=== PATIENT | female | born 1970 | race American Indian/Alaskan Native ===

== ENCOUNTER 2017-02-22 17:37 | Emergency (ER) | payer OTHER ==
--- NOTE | 2017-02-22 19:14 | C.PDOC ---
History Of Present Illness Pt c/o left wrist area pain. Denies injury. She also c/o left posterior ankle pain for 1 week. Time Seen by Provider: 02/22/17 18:08 Chief Complaint (Nursing): Upper Extremity Problem/Injury History Per: Patient Onset/Duration Of Symptoms: Days (few) Current Symptoms Are (Timing): Still Present Quality: "Pain" Severity: Moderate Exacerbating Factor(s): Strenuous Use Of Affected Area, Movement Additional History Per: Prior Records Past Medical History Reviewed: Historical Data, Nursing Documentation, Vital Signs Vital Signs: Last Vital Signs Temp 99.1 F 02/22/17 17:44 Pulse 86 02/22/17 17:44 Resp 20 02/22/17 17:44 BP 118/81 02/22/17 17:44 Pulse Ox 99 02/22/17 17:44 - Medical History PMH: No Chronic Diseases Surgical History: No Surg Hx Family History: States: Unknown Family Hx - Social History Hx Alcohol Use: Yes Hx Substance Use: No - Immunization History Hx Tetanus Toxoid Vaccination: (unk) Hx Influenza Vaccination: No Hx Pneumococcal Vaccination: (unk) Review Of Systems Except As Marked, All Systems Reviewed And Found Negative. Constitutional: Negative for: Fever, Weakness Cardiovascular: Negative for: Chest Pain Respiratory: Negative for: Shortness of Breath Gastrointestinal: Negative for: Vomiting, Abdominal Pain Musculoskeletal: Negative for: Neck Pain, Back Pain Neurological: Negative for: Weakness, Numbness Physical Exam - Physical Exam Appears: Non-toxic, No Acute Distress Skin: Normal Color, Warm, Dry Head: Atraumatic, Normacephalic Eye(s): bilateral: Normal Inspection, PERRL, EOMI Neck: Normal ROM, Supple Cardiovascular: Rhythm Regular Respiratory: Normal Breath Sounds, No Accessory Muscle Use Gastrointestinal/Abdominal: Soft, No Tenderness Back: No CVA Tenderness Extremity: Tenderness (radial aspect of left wrist and posterior left ankle), No Deformity Extremity: Left: Limited ROM To Joint (thumb, due to pain) Pulses: Left Radial: Normal, Left Dorsalis Pedis: Normal Neurological/Psych: Oriented x3, Normal Motor, Normal Sensation ED Course And Treatment O2 Sat by Pulse Oximetry: 99 Pulse Ox Interpretation: Normal Progress Note: Left wrist was placed in velcro cock-up splint. Reassessment Condition: Improved Disposition Counseled Patient/Family Regarding: Diagnosis, Need For Followup, Rx Given - Disposition Referrals: Katrina Lopez MD [Staff Provider] - Disposition: HOME/ ROUTINE Disposition Time: 19:15 Condition: STABLE Additional Instructions: Follow up with your doctor and with an orthopedic shoe fitter for further evaluation and treatment. Rest. Use wrist brace as instructed. Return to the ER if you develop fever, swelling, redness, worsening of symptoms or if you have any other concerns. Prescriptions: Naproxen [Naprosyn] 1 tab PO BID PRN #20 tab PRN Reason: Pain Instructions: Achilles Tendinitis (ED) Forms: [facility] (Khmer) - Clinical Impression Clinical Impression: Left wrist tendonitis, Left Achilles tendinitis
[2017-02-22 19:33] VITALS: BP 110/60; PULSE 71; RESP 16; TEMP 98.9; O2SAT 98
== END 2017-02-22 19:32 | disposition home or self-care (01) ==
LOC: C.ER 17:37
DX: M76.62 Achilles tendinitis, left leg (principal); M77.9 Enthesopathy, unspecified
CPT/HCPCS: 96372; 99285; J1885

== ENCOUNTER 2018-02-10 22:53 | Emergency (ER) | payer OTHER ==
--- NOTE | 2018-02-11 00:37 | C.PDOC ---
History Of Present Illness 47 y/o female with no medical problems biba s/p slipping on wet floor and fell onto buttocks. no head injury. no neck pain. pt c/o bilateral lower back pain that radiates down both leg. no numbness, no bladder or bowel dysfunction. no weakness. Time Seen by Provider: 02/10/18 23:06 Chief Complaint (Nursing): Back Pain History Per: Patient History/Exam Limitations: no limitations Onset/Duration Of Symptoms: Hrs (1) Quality Of Discomfort: Sharp, "Pain" Severity: Moderate Previous Symptoms: None Associated Symptoms: None Exacerbating Factor(s): Movement Past Medical History Reviewed: Historical Data, Nursing Documentation, Vital Signs Vital Signs: Last Vital Signs Temp 98.1 F 02/10/18 22:58 Pulse 60 02/10/18 22:58 Resp 20 02/10/18 22:58 BP 133/86 02/10/18 22:58 Pulse Ox 100 02/10/18 22:58 - Medical History PMH: No Chronic Diseases Family History: States: Unknown Family Hx - Social History Hx Alcohol Use: Yes Hx Substance Use: No - Immunization History Hx Tetanus Toxoid Vaccination: (unk) Hx Influenza Vaccination: No Hx Pneumococcal Vaccination: (unk) Review Of Systems Cardiovascular: Negative for: Chest Pain Respiratory: Negative for: Cough, Shortness of Breath Gastrointestinal: Negative for: Nausea, Vomiting, Abdominal Pain Musculoskeletal: Positive for: Back Pain. Negative for: Neck Pain, Shoulder Pain, Foot Pain Skin: Negative for: Bruising Neurological: Negative for: Weakness, Numbness Physical Exam - Physical Exam Appears: Non-toxic, In Acute Distress (poainful) Skin: Warm, Dry Head: Atraumatic, Normacephalic Neck: No Midline Cervical Tenderness, Supple Gastrointestinal/Abdominal: No Tenderness Back: No CVA Tenderness, Vertebral Tenderness (lumbar and coccygeal ), Paraspinal Tenderness (bilateral lumbar area, ) Extremity: Normal ROM, Tenderness (posterior thighs), No Calf Tenderness, No Swelling Extremity: Bilateral: Atraumatic, Hips Non-Tender Pulses: Left Dorsalis Pedis: Normal, Right Dorsalis Pedis: Normal Neurological/Psych: Oriented x3, Normal Speech, Normal Cognition, Normal Motor, Normal Sensation ED Course And Treatment O2 Sat by Pulse Oximetry: 100 Orthopedic Time Performed: 02:15 Time Out: Side verified, Site verified, Patient ID confirmed Procedure: Splint Type: Long, Posterior Location: Right Consent obtained: Verbal Performed by: Mid-level Provider (done by cp, checked by me) Diagnosis: Sprain Location: Right, Lateral Bone: Malleolus Capillary refill: Normal Distal Sensation: Normal Distal Motor Function: Normal Capillary Refill: Normal Compartment: Normal Distal Sensation: Normal Distal Motor Function: Normal Medical Decision Making Medical Decision Making: pt wihtr lower back and coccygeal pain s/p slip and fall onto buttocks. will get ls xray. toradol and re-evaluate. 1247 osteophytes noted on lumbar spine. discussed with patient. pt with decreased back pain., tylenol and flexeril ordered. pt now c/o right ankle and foot pain. mild swelling and tenderness to right lateral malleolus. xray ankle and foot ordered. 0215 no fx noted on foot or ankle xrays. posterior splint applied and crutch instruction given. d/c home with flexeril (if needed; risks of falls while taking med and on crutches explained to patient and family with understanding . Disposition Counseled Patient/Family Regarding: Studies Performed, Diagnosis, Need For Followup, Rx Given - Disposition Referrals: [facility] [Outside] [facility] [Outside] Courtney Patricia DPM [Staff Provider] - Katrina Lopez MD [Staff Provider] - Disposition: HOME/ ROUTINE Disposition Time: 02:46 Condition: GOOD Additional Instructions: Please keep right foot elevated when possible. Keep splint clean and dry. No weight bearing recommended. Use crutches. Follow up with pharmacist intern as soon as possible. Cold compresses to right lateral ankle several times a day over splint. Take Tylenol and motrin for pain; use flexeril when you won't be walking around much with crutches since it makes you sleepy. Recommend follow up with orthopedics for osteophytes on spine. Prescriptions: Acetaminophen [Tylenol 325mg tab] 650 mg PO Q6 #30 tab Cyclobenzaprine [Cyclobenzaprine HCl] 10 mg PO Q8 #9 tab Naproxen 500 mg PO BID #30 tab Instructions: Ankle Sprain (DC), Lumbar Muscle Strain (DC) Forms: General Discharge Instructions, [facility] (Micronesian), Work Excuse - Clinical Impression Clinical Impression: Lumbar sprain, Right ankle sprain, Fall from slipping on wet surface
[2018-02-11 03:23] VITALS: BP 115/86; PULSE 56; RESP 22; TEMP 98.3
[2018-02-11 06:41] VITALS: O2SAT 100
--- NOTE | 2018-02-11 09:53 | RAD ---
Date of service: 02/10/2018 PROCEDURE: Radiographs of the Lumbar Spine. HISTORY: fell, landed on buttock. b/l back and coccyx pain COMPARISON: None available. FINDINGS: BONES: Alignment appears satisfactory. Multilevel degenerative changes including large osteophyte formation particularly involving the L2, L3, and L4 vertebral bodies. No listhesis. No acute displaced fracture identified. DISC SPACES: Mild intervertebral space narrowing. OTHER FINDINGS: None. IMPRESSION: Multilevel degenerative changes including large osteophyte formation particularly involving the L2, L3, and L4 vertebral bodies.
--- NOTE | 2018-02-11 10:29 | RAD ---
PROCEDURE: Right ankle radiographs Right foot radiographs HISTORY: slip and fall. ankle lateral pain COMPARISON: None available. FINDINGS: BONES: Degenerative changes. Calcaneal enthesophyte. No acute displaced fracture. JOINTS: No dislocation. SOFT TISSUES: Soft tissue swelling greatest laterally. No evidence of radiopaque foreign body. OTHER FINDINGS: None. IMPRESSION: Soft tissue swelling greatest laterally. Degenerative changes. No acute displaced fracture appreciated. If high clinical index of suspicion, cross-sectional imaging may be considered.
== END 2018-02-11 03:17 | disposition home or self-care (01) ==
LOC: C.ER 22:53
DX: S93.401A Sprain of unspecified ligament of right ankle, initial encounter (principal); S33.5XXA Sprain of ligaments of lumbar spine, initial encounter; W01.0XXA Fall on same level from slipping, tripping and stumbling without subsequent striking against object, initial encounter
CPT/HCPCS: 29505; 72100; 73610; 73630; 96372; 99284; J1885